=== PATIENT | male | born 1965 | race Two or more races ===

== ENCOUNTER 2024-01-11 07:56 | Emergency (ER) | payer OTHER ==
[~2024-01-11] VITALS: Ht 167.6 cm; Wt 90.7 kg
[2024-01-11] MEDS ORDERED: PIPERACILLIN/TAZOBACTAM SODIUM 3.375 GM VIAL IV ONE ×2 (08:45→08:59)
[2024-01-11 09:53] LABS: PH,URINE 5.5 (5.0-8.0); URINE BILIRRUBIN Negative (NEGATIVE); URINE BLOOD NHT; URINE COLOR Yellow; URINE LEUKOCYTE Negative; URINE NITRATE Negative; URINE PROTEIN Trace (NEGATIVE); URINE UROBILINOGEN 0.2 E.U./dl
[2024-01-11 09:56] LABS: HEMOGLOBIN 15.9 g/dL (13-16.00); MEAN CELL VOLUME 86.8 fL (80.0-100.00); MEAN CORPUSCULAR HEMOGLOBIN 29.4 pg (27.00-32.0); MEAN CORPUSCULAR HGB CONC 33.9 g/dl (32.0-36.0); PLATELET COUNT 329 K/uL (150-450); RED BLOOD COUNT 5.41 M/uL (4.00-6.00); RED CELL DISTRIBUTION WIDTH 13.3 % (11.5-14.5)
[2024-01-11 09:56] LABS: URINE BACTERIA 13.8 uL (0.0-1933); URINE CAST 3.81 uL (0.0-1.40); URINE EPITHELIAL CELLS 5.2 uL (0.0-38.8); URINE RBC 8.5 uL (0.0-20.8); URINE WBC 9.5 uL (0.0-23.2)
[2024-01-11 10:01] LABS: URINE APPEARANCE CLEAR; URINE GLUCOSE >=1000 MG/DL (NEGATIVE); URINE KETONE 40 (NEGATIVE)
[2024-01-11 10:53] LABS: CALCIUM 9.7 mg/dL (8.5-10.1); CREATININE SERUM 0.99 mg/dL (0.70-1.30); GFR 78.2; POTASSIUM 4.18 mEq/L (3.5-5.1)
== END 2024-01-11 10:50 | disposition home or self-care (01) ==
LOC: ER 07:57
PROVIDERS: Emergency Medicine
DX: L02.219 Cutaneous abscess of trunk, unspecified (principal)

== ENCOUNTER → 2024-01-11 | Outpatient (CLI) | payer OTHER ==
[~2024-01-11] MED LIST: METFORMIN HCL500 MG; MICARDIS HCT 81 EAC1; OSEL75CA PO
== END | disposition home or self-care (01) ==
LOC: LAB 11:25
PROVIDERS: ATTEND Emergency Medicine
DX: R10.2 Pelvic and perineal pain (principal)